=== PATIENT | female | born 1975 ===

== ENCOUNTER 2022-05-24 22:00 | Emergency (ER) | payer SELFPAY ==
--- NOTE | 2022-05-25 05:03 | Emergency Department Report ---
ED General Adult HPI - General Chief complaint: Nausea/Vomiting/Diarrhea Stated complaint: AB PAIN/NAUSEA Time Seen by Provider: 05/25/22 04:37 Source: patient, family Mode of arrival: Ambulatory Limitations: Language Barrier - History of Present Illness Initial comments: Patient is a 47-year-old female with past medical history of recurring bartholin cyst infections. Presents tonight for n/v/D after starting rx. clindamycin and bactrim prescribed on 05/21/2022. pt denies fevers or chills. nausea was exacerbated by po intake however pt is tolerating po intake at this time, pt appears non toxic - Related Data Previous Rx's Medication Instructions Recorded Last Taken Type Ondansetron [Zofran Odt] 4 mg PO Q8HR PRN #12 tab.rapdis 05/25/22 Unknown Rx Allergies Allergy/AdvReac Type Severity Reaction Status Date / Time No Known Allergies Allergy Verified 05/24/22 22:39 ED Review of Systems ROS: Stated complaint: AB PAIN/NAUSEA Other details as noted in HPI Constitutional: denies: chills, fever Eyes: as per HPI ENT: denies: ear pain, throat pain Respiratory: denies: cough, shortness of breath, wheezing Cardiovascular: denies: chest pain, palpitations Endocrine: no symptoms reported Gastrointestinal: nausea, vomiting, diarrhea Genitourinary: denies: urgency, dysuria, discharge Musculoskeletal: denies: back pain, joint swelling, arthralgia Skin: denies: rash, lesions Neurological: denies: headache, weakness, paresthesias Psychiatric: denies: anxiety, depression Hematological/Lymphatic: denies: easy bleeding, easy bruising ED Past Medical Hx - Medications Home Medications: Home Medications Medication Instructions Recorded Confirmed Last Taken Type Ondansetron [Zofran Odt] 4 mg PO Q8HR PRN #12 tab.rapdis 05/25/22 Unknown Rx ED Physical Exam - General Limitations: Language Barrier General appearance: alert, in no apparent distress - Head Head exam: Present: normocephalic, normal inspection - Eye Eye exam: Present: EOMI Pupils: Present: normal accommodation - ENT ENT exam: Present: mucous membranes moist - Neck Neck exam: Present: normal inspection, full ROM. Absent: tenderness - Respiratory Respiratory exam: Present: normal lung sounds bilaterally. Absent: respiratory distress, wheezes - Cardiovascular Cardiovascular Exam: Present: regular rate, normal rhythm, normal heart sounds. Absent: systolic murmur, diastolic murmur, rubs, gallop - GI/Abdominal GI/Abdominal exam: Present: soft, normal bowel sounds. Absent: distended, tenderness, guarding, rebound, rigid, bruit, hernia - Rectal Rectal exam: Present: deferred - External exam: Present: other (word cath intact scant drainage no swelling no fluctuance ). Absent: erythema - Extremities Exam Extremities exam: Present: normal inspection, full ROM, normal capillary refill - Back Exam Back exam: Present: normal inspection, full ROM. Absent: CVA tenderness (R), CVA tenderness (L) - Neurological Exam Neurological exam: Present: alert, oriented X3, CN II-XII intact, normal gait - Psychiatric Psychiatric exam: Present: normal affect - Skin Skin exam: Present: warm, dry, intact, normal color. Absent: rash ED Course Vital Signs 05/24/22 22:35 Temperature 98.2 F Pulse Rate 83 Respiratory 18 Rate Blood Pressure 126/81 O2 Sat by Pulse 100 Oximetry ED Medical Decision Making - Medical Decision Making Pt was seen on 05/21/2022 and discharge after I&D of right Bartholin cyst. pt was dc'd wtih rx for clindamycin, ultram, and bactrim, , Word Cath check, placement intact minimal drainage, there is no fever or chills , no n/v at this time, plan ad zofran prn, complete abx as prescribed and follow up with [facility] in 3 days, return to emergency if symptoms worsen. pt dc'd with rx for zofran odt prn nausea. pt is other tolerating po, voiding without problem, discharge is decreased. [employer] Packer was used for this case, pt's at bedside, as her prefered road contractor. Critical care attestation.: If time is entered above; I have spent that time in minutes in the direct care of this critically ill patient, excluding procedure time. ED Disposition Clinical Impression: Nausea & vomiting Qualifiers: Vomiting type: unspecified Qualified Code(s): R11.2 - Nausea with vomiting, unspecified Disposition: HOME / SELF CARE / HOMELESS Is pt being admited?: No Does the pt Need Aspirin: No Condition: Stable Instructions: Nausea and Vomiting, Adult Additional Instructions: Take medications as prescribed, only take clindamycin as ordered stop taking Bactrim. Follow-up with [facility] FAC[facility] doctor in 3 days. To have catheter removed or return to emergency department. Turn to emergency department if nausea vomiting persist. Prescriptions: Ondansetron [Zofran Odt] 4 mg PO Q8HR PRN #12 tab.rapdis PRN Reason: Nausea Referrals: PRATIBHA LEYVA MD [Staff Physician] - 3-5 Days Forms: Work/School Release Form(ED) Time of Disposition: 05:08 Print Language: WOLOF
[2022-05-25 05:35] VITALS: BP 123/84
== END 2022-05-25 05:58 | disposition home or self-care (01) ==
LOC: ED 22:00
DX: R11.2 Nausea with vomiting, unspecified (principal)
CPT/HCPCS: 99282